=== PATIENT | female | born 1965 | race American Indian/Alaskan Native ===

== ENCOUNTER 2018-11-05 21:27 | Emergency (ER) | payer MEDICAID, OTHER ==
[2018-11-05 21:34] VITALS: BP 123/74; PULSE 102; RESP 18; TEMP 99; O2SAT 100
--- NOTE | 2018-11-05 22:10 | C.PDOC ---
History Of Present Illness 53 year old female presents to the ED c/o itchy rash around her lips since yesterday. Patient rash might be due to some food she had recently but is not completely sure. Patient denies facial swelling, lip swelling, tongue swelling, SOB, wheezing, other rash in her body, recent travel. Time Seen by Provider: 11/05/18 21:44 Chief Complaint (Nursing): Abnormal Skin Integrity History Per: Patient History/Exam Limitations: no limitations Onset/Duration Of Symptoms: Days (1) Current Symptoms Are (Timing): Still Present Location Of Injury: Anterior: Mouth Quality Of Symptoms: Itching Recent travel outside of the [place]: No Additional History Per: Patient Past Medical History Reviewed: Historical Data, Nursing Documentation, Vital Signs Vital Signs: Last Vital Signs Temp 99.0 F 11/05/18 21:30 Pulse 102 H 11/05/18 21:30 Resp 18 11/05/18 21:30 BP 123/74 11/05/18 21:30 Pulse Ox 100 11/05/18 21:30 Primary Care Provider: Raymundo Tolliver Medical History PMH: Back Problems, Hyperlipidemia Denies: Diabetes, Chronic Kidney Disease Surgical History: No Surg Hx Family History: States: Unknown Family Hx - Social History Hx Tobacco Use: Yes Hx Alcohol Use: Yes Hx Substance Use: No - Immunization History Hx Tetanus Toxoid Vaccination: Yes Hx Influenza Vaccination: No Hx Pneumococcal Vaccination: No Review Of Systems Constitutional: Negative for: Fever, Chills ENT: Negative for: Mouth Swelling Respiratory: Negative for: Cough, Shortness of Breath, Wheezing Gastrointestinal: Negative for: Nausea, Vomiting Skin: Positive for: Rash Neurological: Negative for: Weakness, Numbness, Headache Physical Exam - Physical Exam Appears: Non-toxic, No Acute Distress Skin: Warm, Dry, Rash (dry macular to the perioral area. No vesicles, lesions, signs of infection), Other (remainder of skin normal) Head: Atraumatic, Normacephalic Eye(s): bilateral: Normal Inspection, PERRL Nose: No Discharge Oral Mucosa: Moist Tongue: No Swelling Lips: No Swelling Throat: Normal, No Erythema, No Exudate Neck: Normal ROM, Supple Chest: Symmetrical Cardiovascular: Rhythm Regular Respiratory: Normal Breath Sounds, No Rales, No Rhonchi, No Wheezing Neurological/Psych: Oriented x3, Normal Speech, Normal Cognition Gait: Steady ED Course And Treatment O2 Sat by Pulse Oximetry: 100 (ON RA) Pulse Ox Interpretation: Normal Progress Note: Plan: - Benadryl 50 mg PO. - Prednisone 40 mg PO. Patient remains stable in the ED, breathing without difficulty in NARD. Patient was advised to continue taking antihistamines at home. Patient advised to follow up with PMD. Disposition Counseled Patient/Family Regarding: Diagnosis, Need For Followup, Rx Given - Disposition Referrals: Raymundo Tolliver MD [Medical Doctor] - Disposition: HOME/ ROUTINE Disposition Time: 22:07 Condition: STABLE Additional Instructions: Please follow up with PMD Take medications as directed Return to ER if worse Prescriptions: Cetirizine HCl [Zyrtec] 10 mg PO DAILY #14 capsule DiphenhydrAMINE [Benadryl] 50 mg PO HS #14 cap Hydrocortisone 1% Cream [Cortizone 1% Cream] 1 appl TP BID #60 g Instructions: Contact Dermatitis (DC) Forms: [employer] (Macedonian) - Clinical Impression Clinical Impression: Contact allergic reaction - PA / [employer] / Resident Statement MD/DO has reviewed & agrees with the documentation as recorded. - Scribe Statement The provider has reviewed the documentation as recorded by the Scribe Ayden Williamson All medical record entries made by the Scribe were at my direction and personally dictated by me. I have reviewed the chart and agree that the record accurately reflects my personal performance of the history, physical exam, medical decision making, and the department course for this patient. I have also personally directed, reviewed, and agree with the discharge instructions and disposition.
== END 2018-11-05 22:14 | disposition home or self-care (01) ==
LOC: C.ER 21:27
DX: T78.40XA Allergy, unspecified, initial encounter (principal)